=== PATIENT | female | born 1955 | race Caucasian/White ===

== ENCOUNTER 2019-04-05 06:27 | Inpatient (IN) | payer OTHER ==
[2019-04-05] MEDS ORDERED: Nitroglycerin TAB 0.4 MG* 0.4 MG TAB SL PRN ×2 (06:42→09:02)
[2019-04-05] MEDS ORDERED: Ticagrelor* 90 MG TAB PO ONE (06:42)
[2019-04-05] MEDS ORDERED: NS 0.9% 1000 ML** 1,000 ML IV ONE (06:42)
[2019-04-05] MEDS ORDERED: Heparin for STEMI(*) 5,000 UNITS/ML 1 ML VIAL IV ONE (06:42)
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
[2019-04-05] MEDS ORDERED: Aspirin 81 mg CHEW TAB* 81 MG TAB.CHEW PO ONE (06:49)
[2019-04-05 06:55] LABS: ABS Basophils 0.1 10^3/ul (0-0.2); ABS Eosinophils 0.2 10^3/ul (0-0.6); ABS Lymphocytes 1.7 10^3/ul (1.0-4.8); ABS Monocytes 0.4 10^3/ul (0-0.8); ABS Neutrophils 5.3 10^3/ul (1.5-7.7); Eosinophil % 2.1 %; Hematocrit 36 % (35-47); Hemoglobin 11.7 g/dL (12.0-16.0); Lymphocyte % 22.2 %; Mean Corpuscular HGB Conc 33 g/dL (31-36); Mean Corpuscular Hemoglobin 25 pg (27-31); Mean Corpuscular Volume 78 fL (80-97); Mean Platelet Volume 8.4 fL (7.4-10.4); Platelet Count 238 10^3/uL (150-450); Red Blood Count 4.62 10^6 /uL (3.70-4.87); Red Cell Distribution Width 18 % (10-15); White Blood Count 7.6 10^3/uL (3.5-10.8)
--- OUTSIDE RECORDS SUMMARY | 2019-04-05 07:00 | XMS REPORT | Continuity of Care Document ---
:1955 External Reference #:[id number] Author Name Juan Pablo Mendez M.D. Address [address] [place] [address] Care Team Providers Name Role Phone Juan Pablo Mendez MD - Family Medicine Care Team Information Baffle Installer [phone] Maria Elena Mcconnell PA-C - Care Team Information Baffle Installer [phone] Gastroenterology Problems Active Problems Provider Date Hypothyroidism Juan Pablo Mendez M.D. Onset: 08/20/2007 Gastroesophageal reflux disease Juan Pablo Mendez M.D. Onset: 08/20/2007 Depressive disorder Juan Pablo Mendez M.D. Onset: 08/20/2007 Type 2 diabetes mellitus Juan Pablo Mendez M.D. Onset: 08/26/2008 Obesity Juan Pablo Mendez M.D. Onset: 08/26/2008 Obstructive sleep apnea syndrome Juan Pablo Mendez M.D. Onset: 10/13/2011 Low back pain Kvng Borden M.D. Onset: 06/08/2012 Right lower quadrant pain Kvng Borden M.D. Onset: 06/08/2012 Essential hypertension Juan Pablo Mendez M.D. Onset: 04/01/2016 Granuloma annulare Juan Pablo Mendez M.D. Onset: 02/28/2019 Adult health examination Juan Pablo Mendez M.D. Onset: 08/20/2018 Constipation - functional Juan Pablo Mendez M.D. Onset: 01/22/2018 Social History Type Date Description Comments Sex Unknown Tobacco Use Start: Unknown Never Smoked Cigarettes ETOH Use Rare Tobacco Use Start: Unknown Patient has never smoked Smoking Status Reviewed: 10/20/18 Patient has never smoked Allergies, Adverse Reactions, Alerts Active Allergies Reaction Severity Comments Date Penicillin Vicodin nausea 06/30/2005 Levaquin INSOMNIA, INSOMNIA 08/26/2008 Medications Active Medications SIG Qnty Indications Ordering Date Provider Omeprazole 1 by mouth every 90caps Juan Pablo FDeb 12/22/2018 20mg day Lars Mendez Capsules DR VOGEL Ultra Fine Short dx diabetes 100units Juan Pablo FDeb 08/20/2018 Pen Mcloud mellitus e11.9 Lars Mendez Cpap replacement cpap G47.33 [place] 05/29/2018 mask, headgear, Rylie, [employer] tubing, filters, water chamber/chin strap disp#1, replace all as needed Metformin HCL take one tablet by 180tabs E11.9 Danna 02/10/2017 1000mg mouth twice a day Rylie, [employer] DES[employer] Tablets Hydrocortisone apply to face 30gm Phi Abad 01/04/2017 Valerate twice daily as Lasr Mcdonald 0.2% Cream needed Glipizide take 1 tablet by 270tabs E11.9 Juan Pablo FDeb 11/04/2016 5mg Tablets mouth 3 times Lars Mendez daily Mcloud For Opticlik daily injections 90units Juan Pablo FDeb 11/04/2016 LELA e11.9 Lars Mendez Ultra Fine III Lantus Solostar 30 units subq 45ml Juan Pablo FDeb 08/05/2016 every night 1 Lars Mendez 100Unit/ML Solution hours prior to bed Pen-Inject Losartan Potassium Take 1 Tablet By 90tabs Juan Pablo FDeb 06/03/2016 25mg Mouth Every Day Lars Mendez Tablets Tylenol With Codeine 1 tablet every 4 30tabs M25.572 Phi Abad 10/15/2015 #3 hours as needed Lars Mcdonald 300-30mg Tablets for pain Levothyroxine Sodium take 1 tablet by 90tabs E03.9 Marisel Stephen 02/14/2012 mouth daily PEÑA Abarca 50mcg Tablets Vesicare 1 tab every other 90tabs Juan Pablo FDeb 10mg Tablets day Lars Mendez History Medications Note needs new cpap Juan Pablo Mendez, 01/09/2019 - machine, 9cm M.D. 02/28/2019 pressure, Clotrimazole/Betameth apply to affected 60ml B37.9 Swapna Anushka 10/20/2018 - asone Dipropionate area twice a day PEÑA Olivares 02/28/2019 1-0.05% Lotion Diflucan 1 by mouth every 7tabs B37.9 Swapna Anushka 10/20/2018 - 200mg Tablets day PEÑA Olivares 02/28/2019 Immunizations CPT Code Status Date Vaccine Lot # [id number] Given 02/28/2019 Zoster (Shingles) Vaccine (HZV), Recombinant, [id number] Subunit, Adjuvanted 50586 Given 04/17/2018 Influenza Vac, Quadrivalent, Slit Virus, Im [id number] 31402 Given 05/18/2017 Influenza vac quadrivalent preservative free 3yrs [id number] and [place] 60298 Given 04/01/2016 Zostivax [id number] 59520 Given 04/01/2016 Influenza Vac, Quadrivalent, Slit Virus, Im [id number] 21656 Given 05/22/2014 Pneumococcal Conjugate Vacc-13 [id number] 62023 Given 06/04/2013 Preservative free flu 3 yrs+ and older [id number] 13853 Given 10/13/2011 Tdap Tetanus, W Pertussis [id number] 26889 Given 04/22/2010 Pneumococcal Immunization [id number] 70173 Given 01/27/2004 Td Immunization, For Use In Individuals 7 Years Or Older Vital Signs Date Vital Result Comment 02/28/2019 8:20am BP Systolic 124 mmHg BP Diastolic 76 mmHg Heart Rate 72 /min Body Temperature 98.1 F Respiratory Rate 16 /min Height 65 inches 5'5" Weight 245.00 lb BMI (Body Mass Index) 40.8 kg/m2 10/20/2018 9:58am BP Systolic 120 mmHg BP Diastolic 60 mmHg Heart Rate 88 /min Body Temperature 98.1 F Respiratory Rate 16 /min Height 65 inches 5'5" Weight 241.00 lb BMI (Body Mass Index) 40.1 kg/m2 Results Description No Information Available Procedures Date Code Description Status 02/28/2018 [id number] Mammogram Completed 06/19/2017 [id number] Colonoscopy Completed 05/03/2017 [id number] Colonoscopy Completed 02/27/2017 [id number] Mammogram Completed 03/03/2016 [id number] Bone Mineral Density Test Completed 02/26/2016 [id number] Mammogram Completed 11/05/2014 [id number] Mammogram Completed 11/04/2013 [id number] Mammogram Completed 02/17/2012 [id number] Mammogram Completed 02/14/2011 [id number] Mammogram Completed 01/18/2010 [id number] Mammogram Completed 01/16/2009 [id number] Mammogram Completed 01/16/2008 [id number] Mammogram Completed 12/22/2006 [id number] Mammogram Completed 11/03/2006 [id number] Colonoscopy Completed Medical Devices Description No Information Available Encounters Type Date Location Provider Dx Diagnosis Office Visit 10/20/2018 Main Office Swapna Reveles B37.9 Candidiasis, 10:00a PEÑA Olivares unspecified Assessments Date Code Description Provider 02/28/2019 E11.9 Type 2 diabetes mellitus without Juan Pablo Mendez M.D. complications 02/28/2019 E03.9 Hypothyroidism, unspecified Juan Pablo Mendez M.D. 02/28/2019 K21.9 Gastro-esophageal reflux disease without Juan Pablo Mendez M.D. 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 02/28/2019 Z23 Encounter for immunization Juan Pablo Mendez M.D. 10/20/2018 B37.9 Candidiasis, unspecified Swapna Olivares NP Plan of Treatment Future Appointment(s):03/01/2019 2:15 pm - Juan Pablo Mendez M.D. at Main [facility]/28/2019 - Juan Pablo Mendez M.D.E11.9 Type 2 diabetes mellitus without complicationsNew Labs:Comp Metabolic-ALL [facility], Ordered: 02/28/19Lipid Panel-[facility], Ordered: 02/28/19Hemoglobin A1c ([facility]), Ordered: C-Peptide, Serum, Ordered: 02/28/19CBC Electronic ([facility] New), Ordered: Comments:The patient was reminded to have regular Opthalmology exams , and check on blood pressure periodically.E03.9 Hypothyroidism, unspecifiedNew Labs: TSH ([facility]), Ordered: 02/28/19Free T4 ([facility]), Ordered: Follow up:Followup:. (Follow up)K21.9 Gastro-esophageal reflux disease without esophagitisComments:continue present ttxhavlosaP54.0 Granuloma annulareComments:uncontrolled, consider second [id number] Encounter for immunizationFollow up:Followup:. (Follow up)AllComments:Patient's name concern today is granuloma annulare, we discussed the possibility of a second opinionand she will consider this. Repeat lab work today for followup on diabetic control, we discussed thepossibility of changing to Trulicity or Ozempic and decreasing or stopping her dose of Lantus if it appears that her C- peptide is acceptable, or to consider consultation with Dr. Chua, will continue omeprazole for gastroesophageal reflux . Mammogram scheduled for tomorrow Functional Status Description No Information Available Mental Status Description No Information Available Referrals Refer to Dr Reason for Referral Status Appt Date Geovanna Hayes MD Worsening Rash jw Scheduled 11/02/2018 [facility] [address] [place] [address] [phone]
[2019-04-05 07:03] LABS: INR 0.86 (0.82-1.09)
[2019-04-05] MEDS ORDERED: Heparin(*) 1000 UNIT/ML 10 ML VIAL CATH LAB IV ONE (07:05)
[2019-04-05] MEDS ORDERED: VERAPAMIL 2.5 MG/ML 2 ML VIAL ** 5 mg/2 ml ONE (07:05)
[2019-04-05] MEDS ORDERED: Lidocaine 1% INJ* 10 MG/ML 30 ML SDV ONE (07:05)
[2019-04-05] MEDS ORDERED: Heparin 2 UNITS/ML IVPREMIX* 2,000 ML IV ONE (07:05)
[2019-04-05] MEDS ORDERED: nitroGLYCERIN DRIP* 25,000 MCG/250 ML BTL ONE ×2 (07:05→07:36)
[2019-04-05] MEDS ORDERED: Iohexol 350 (CONTRAST) 200 ML MDV IV ONE (07:06)
[2019-04-05 07:14] LABS: Albumin/Globulin Ratio 1.4 (1-3); BUN/Creatinine Ratio 13.3 (8-20); Calcium 9.4 mg/dL (8.6-10.3); EGFR African American 76.3 (>60); Globulin 2.8 g/dL (2-4); Potassium 4.3 mmol/L (3.5-5.0); Total Bilirubin 0.3 mg/dL (0.2-1.0); Total Protein 6.8 g/dL (6.4-8.9)
[2019-04-05 07:17] LABS: Troponin I 0.48 ng/mL (<0.04)
[2019-04-05] MEDS ORDERED: Iodixanol 320 (CONTRAST) 100 ML SDV ONE (07:35)
[2019-04-05] MEDS ORDERED: fentaNYL* 50 MCG/ML 2 ML VIAL (100 MCG VIAL) ONE (07:40)
[2019-04-05] MEDS ORDERED: Midazolam* 1 MG/ML 5 ML VIAL (5 MG) ONE (07:41)
[2019-04-05] MEDS ORDERED: Metoprolol Tartrate IV* 1 MG/ML 5 ML VIAL ONE (08:22)
[2019-04-05] MEDS ORDERED: Acetaminophen TAB* 325 MG PO PRN (09:02)
[2019-04-05] MEDS ORDERED: NS 0.9% 1000 ML** 1,000 ML IV SCH (09:15)
[2019-04-05 10:00] LABS: HDL Cholesterol 46.8 mg/dL
[2019-04-05 10:34] LABS: Troponin I 4.38 ng/mL (<0.04)
[2019-04-05] MEDS: CAPTopril TAB* 12.5 MG TAB PO SCH ×3 (10:41→20:54)
--- NOTE | 2019-04-05 11:19 | HP ---
AMENDED REPORT NOW INCLUDES DESIGNATED COSIGNER CC: Dr. Mendez * DATE OF ADMISSION: 04/05/2019. ATTENDING PHYSICIAN: Dr. José Miguel Centeno * (dictated by Wilda Alvarez NP). PRIMARY CARE PHYSICIAN: Dr. Mendez. CHIEF COMPLAINT: Chest pain. HISTORY OF PRESENT ILLNESS: This is a 63-year-old female patient with a notable history of obstructive sleep apnea, type 2 diabetes, hypertension, newly diagnosed hyperlipidemia, and morbid obesity who presented to [facility] on 04/05/2019 at 0600 due to complaints of ongoing chest pain. The patient states that she has been in her usual state of health. Apparently her most recent hemoglobin A1c at the end of January 2019 with 6.7 percent. She was referred to Dr. Larry Chua whom she is to see this coming May. She also adds that at that time her lipid panel was update and she was started on Pravastatin 10 mg a day, although she states she just recently started therapy within the past week. Apparently since last 03/30/2019, she has been noticing intermittent complaints of substernal burning chest pain. She states that the first episode occurred last Monday while watching her grandchildren and lasted less than 5 minutes. Apparently episodes started to reoccur on Monday and would occur with exertion and resolve with rest. She states that she "thought it was related to chest congestion, you know like how bronchitis feels." Apparently, yesterday she started to have increased frequency of episodes with increased intensity with radiation into the left arm. She states that symptoms also correlated with complaints of headache. Apparently, this occurred intermittently throughout the day yesterday. She adds that when she went to bed at 10:00 p.m. she was still having symptoms, although mild in intensity. When she woke up at midnight last night, symptoms were not present; however, at 3 o'clock this morning, apparently she was woken up from her sleep due to intense substernal chest pain described as burning in nature. Symptoms were constant and ongoing and more intense, thus she opted to present to [facility] for further evaluation. While being evaluated in the emergency department, ECG was obtained due to anterolateral ST segment changes. STEMI alert was called. She was given 325 mg of aspirin, in addition to 180 mg of Brilinta and IV Heparin therapy was initiated. She was seen urgently in consultation by Dr. José Miguel Centeno, project development leader. Decision was made to take her emergently to the matlab developer. She denies a history of stroke or bleeding complications. She is on Prilosec due to gastric reflux. LAST ISCHEMIC EVALUATION: None. PAST MEDICAL HISTORY: 1. Obstructive sleep apnea, reports compliant with CPAP therapy. 2. GERD. 3. Type 2 diabetes mellitus. 4. Hypothyroidism. 5. Depression. 6. Obesity. 7. Hypertension. 8. Newly diagnosed hyperlipidemia. PAST SURGICAL HISTORY: 1. Right shoulder decompression. 2. Colonoscopy. 3. Right ankle surgery. HOME MEDICATIONS: 1. Glipizide 5 mg p.o. b.i.d. 2. Vesicare 10 mg every other day. 3. Pravastatin 10 mg a day. 4. Prilosec 40 mg a day. 5. Metformin 1 gm p.o. b.i.d. 6. Losartan 25 mg a day. 7. Levothyroxine 0.05 a day. 8. Lantus 30 units at bedtime. ALLERGIES: 1. PENICILLIN, unknown reaction. 2. ADHESIVE TAPE WHICH CAUSES RASH. 3. LEVOTHYROXINE WHICH CAUSES INSOMNIA. FAMILY HISTORY: Her mother of complications from lung carcinoma. Otherwise noncontributory. SOCIAL HISTORY: The patient denies tobacco use, alcohol use, or drug use. She is retired. Apparently she is and single and lives home alone. In regards to activity, she tries to remain active, babysitting her four grandchildren. REVIEW OF SYSTEMS: All systems have been reviewed and are otherwise negative except for as above mentioned in the HPI. PHYSICAL EXAMINATION GENERAL: The patient is lying in bed with her daughter at bedside and appears in no apparent distress post cardiac catheterization. She is alert and oriented times three. CURRENT VITAL SIGNS: Temperature 98.7, pulse 83, respirations 20, oxygenation 98 percent on room air, blood pressure 120/72. HEENT: Head is atraumatic, normocephalic. Oral mucosa is moist. Tongue is midline. NECK: Supple, trachea midline. Unable to assess for JVD due to body habitus. No carotid bruit noted. CARDIAC: Normal S1, S2. Regular rate and rhythm. No murmur, rub, or gallop noted. LUNGS: Auscultated anteriorly. No evidence of adventitious breath sounds. Respirations are nonlabored. /GI: Abdomen is protuberant, nontender. Normoactive bowel sounds times four. EXTREMITIES: Right upper extremities radial access site was assessed. Strong radial pulse. No hematoma. Right upper extremity is in immobilizer. Bilateral dorsalis pedis pulse were assessed and are 3+. SKIN: Intact. Right radial access site is covered with Tegaderm dressing. No rashes, ecchymosis, or bleeding noted. LABORATORY DATA: Blood work obtained 04/05/2019 at [facility]: White count 7.6, hemoglobin 11.7, hematocrit 36, platelets 238; sodium 136, potassium 4.3, chloride 104, carbon dioxide 24, BUN 12, creatinine 0.9, glucose 286, troponin #1 is 0.48, BNP 110, LDL 89. ECG, 04/05/2019 at 0630: Sinus tachycardia, rate [address] segment elevation noted in V1 through V3 with reciprocal change noted in lead 2 and in V4 through V6. There are pathological Q-waves noted in V1 through V2. Chest x-ray obtained 04/05/2019, per radiology report: No active cardiopulmonary disease. ASSESSMENT AND PLAN: 1. Late presenting anterior MD: The patient has had persistent recurrent complaints of chest pain for the past seven days with increased intensity starting 04/04/2019. Early this morning, she had chest pain that awoke her from sleep at 0300 that was not related to activity and persistent and ongoing, thus she presented to [facility] for further evaluation. She was taken emergently to the matlab developer where she underwent successful drug-eluting stent placement to mid LAD. She will be admitted to the ICU. Isoenzymes are to be cycled. Will update echocardiogram. She is on aspirin 81 mg a day in combination with Brilinta 90 mg p.o. b.i.d. She will need uninterrupted dual antiplatelet therapy for a minimum of 12 months given presentation with STEMI. We will initiate low dose beta aftab therapy and continue statin therapy. LDL is 89, reflective of Pravastatin 10 mg a day; however, the patient states she just started this dose seven days ago. Will follow closely. 2. History of uncontrolled type 2 diabetes mellitus: Most recent hemoglobin A1c at the of January per patient was 6.7 percent. She was referred to Dr. Larry Chua whom she is to see in May. Given newly found coronary artery disease, she would benefit from SGLT-2 inhibitor such as Jardiance. This can be addressed on an outpatient basis. 3. History of hyperlipidemia: LDL 89, on Pravastatin therapy. Recommend a goal LDL less than 70 given history of diabetes and now newly diagnosed coronary artery disease. Will start high intensity statin therapy due to above # 1. 4. Microcytic anemia: In the past she had a colonoscopy with Dr. Ronnie Ozuna in 2017. Apparently she has not seen Gastroenterology since that time. She had three colorectal polyps removed. She denies bleeding complications in the past. 5. History of GERD: On Prilosec therapy. She said she had refractory symptoms on this therapy; thus, PCP in the past had attempted an alternative medication. Unfortunately, she is not able to recall the drug name. She may benefit from Dexilant therapy; however, this can be addressed with Gastroenterology or her primary physician in follow-up. 6. History of hypertension: Goal blood pressure less than 130/80 given history of diabetes. Will initial beta aftab therapy and monitor closely. 7. Disposition: Pending course. The patient is full code. Will cycle isoenzymes, chest echocardiogram and follow closely. Dr. José Miguel Centeno, who has previously seen and examined the patient, agrees with the above assessment and plan. WILDA ALVAREZ, PEÑA [id number]/[facility] #: [id number] CHACHA
[2019-04-05] MEDS ORDERED: Dextrose 50% VIAL 50 ml IV PUSH PRN (11:58)
[2019-04-05] MEDS: Insulin LISPRO* 1 UNITS UNIT SUBCUT SCH ×3 (12:23→20:53)
--- NOTE | 2019-04-05 13:43 | CATH ---
CC: Dr. Mendez; Dr. Mauro Centeno STENT REPORT: DATE OF PROCEDURE: 04/05/19 PRIMARY CARE PHYSICIAN: Dr. Mendez. PROCEDURES: 1. Right radial artery access with ultrasound guidance. 2. Bilateral selective coronary cineangiography. 3. Left heart catheterization. 4. Left ventriculography. 5. Stent placement LAD 2.5 x 12 Synergy drug-eluting stent. HISTORY: A 63-year-old diabetic presenting late with anteroseptal ST elevation infarct. PROCEDURE ACCESS: Right radial artery with ultrasound guidance. SHEATH: 6F Slender. MEDICATIONS: She received aspirin, heparin 4000 units and loading dose of Brilinta pre laboratory helper. laborer/grade check medications: 1. Nitroglycerin 300 mcg IA. 2. Verapamil 3 mg IA. 3. Heparin 5000 units IV. Continued IV nitroglycerin. DIAGNOSTIC CATHETER: 5F TIG4, 6F VL 3.5, 5F pigtail. GUIDING CATHETER: LAD 6F VL 3.5. WIRE: 14 BMW used to deploy a 2.5 X 12 Synergy drug-eluting stent in the mid LAD which was then post dilated with a 2.5 x 12 NC balloon to 16 atmospheres for 30 seconds. HEMODYNAMICS: Initial AO 136/80. Post revascularization LV 148/13-27, no aortic valve gradient on pullback. ANGIOGRAPHY: RCA: The RCA is large, dominant. The acute marginal branch supplies the PDA. It is followed by several smaller posterolateral branches with a terminal moderate posterolateral. The RCA has no significant stenosis. There are no visible right to left collaterals. Left main: The left main is normal in size and length, has no stenosis. LAD: The LAD has mild proximal calcification with an eccentric 30% stenosis, the LAD is moderate in size. The mid LAD supplies a moderate diagonal branch after which the LAD has an 80% stenosis which is fairly short, eccentric, the LAD continuation has JESUS-2 flow, LAD ends at the apex. Circumflex: The circumflex is moderate, not dominant, supplies the SA ryne artery and a moderate marginal branch, ends with a small posterolateral. The circumflex has no stenosis. Post LAD stent placement and high pressure postdilatation, the LAD has JESUS-3 flow, there is no residual stenosis. There is no compromise of the diagonal at the proximal end of the stent, a small JL diagonal has ostial 80% to 90% stenosis, is less than a millimeter in diameter. There was a normal myocardial blush. LV gram: There is ventricular ectopy, there is localized akinesis in the mid anterolateral wall, an apical hypokinesis, estimated LVEF 40% in the presence of ventricular ectopy. There is no MR. CONCLUSION: 1. Single vessel disease LAD, good angiographic result with drug-eluting stent placement. 2. LV systolic dysfunction as above with regional wall motion abnormality consistent with infarct-related artery. 3. Elevated left ventricular filling pressures with hypertension. 4. Successful right radial artery access. [id number]/[facility] #: [id number] MTDD
[2019-04-05 14:17] LABS: Corrected Retic Count 1.5 % (0.5-1.5); Hematocrit for Retic CNT 36 % (35-47); Immature Retic Fraction 0.41; RBC Retic Count 4.59 10^6/uL (3.70-4.87)
[2019-04-05 15:47] LABS: Troponin I 14.5 ng/mL (<0.04)
[2019-04-05 15:48] LABS: CKMB ng/mL 115.1 ng/mL (0.6-6.3)
[2019-04-05] MEDS: Atorvastatin* 80 MG TAB PO SCH (18:00)
[2019-04-05 19:50] LABS: Ferritin 5.5 ng/mL (11-307)
[2019-04-05] MEDS: Carvedilol TAB* 6.25 MG PO SCH (20:54)
[2019-04-05] MEDS: Ticagrelor* 90 MG TAB PO SCH (20:54)
[2019-04-05] MEDS: Insulin GLARGINE(*) 1 UNITS UNIT SUBCUT SCH (20:55)
[2019-04-05] MEDS ORDERED: glipiZIDE TAB* 5 MG PO SCH (21:00)
[2019-04-05 21:38] LABS: Creatine Kinase 620 U/L (10-223)
[2019-04-05 21:41] LABS: CKMB ng/mL 64.9 ng/mL (0.6-6.3)
[2019-04-05 21:42] LABS: Troponin I 12.58 ng/mL (<0.04)
[2019-04-06] MEDS: Insulin LISPRO* 1 UNITS UNIT SUBCUT SCH ×5 (00:16→18:29)
[2019-04-06 04:54] LABS: BUN/Creatinine Ratio 8.6 (8-20); Calcium 8.7 mg/dL (8.6-10.3); EGFR African American 73.4 (>60); EGFR Non-African American 60.7 (>60); Potassium 3.7 mmol/L (3.5-5.0)
[2019-04-06] MEDS: Levothyroxine TAB* 50 MCG TAB PO SCH (05:47)
[2019-04-06] MEDS: Ticagrelor* 90 MG TAB PO SCH ×2 (08:32→21:59)
[2019-04-06] MEDS: Spironolactone TAB* 25 MG PO SCH (08:32)
[2019-04-06] MEDS: Carvedilol TAB* 6.25 MG PO SCH ×2 (08:32→21:59)
[2019-04-06] MEDS: CAPTopril TAB* 12.5 MG TAB PO SCH ×3 (08:32→21:59)
[2019-04-06] MEDS: Pantoprazole TAB * 40 MG TAB PO SCH (08:32)
[2019-04-06] MEDS: Aspirin 81 mg CHEW TAB* 81 MG TAB.CHEW PO SCH (08:32)
[2019-04-06] MEDS: Ferrous Sulfate TAB* 325 MG PO SCH ×2 (13:28→21:59)
[2019-04-06] MEDS: Atorvastatin* 80 MG TAB PO SCH (18:31)
[2019-04-06] MEDS: Insulin GLARGINE(*) 1 UNITS UNIT SUBCUT SCH (22:08)
[2019-04-07] MEDS: Levothyroxine TAB* 50 MCG TAB PO SCH (05:32)
[2019-04-07 06:58] LABS: BUN/Creatinine Ratio 14.3 (8-20); Calcium 8.8 mg/dL (8.6-10.3); EGFR African American 82.6 (>60); EGFR Non-African American 68.3 (>60)
[2019-04-07] MEDS ORDERED: Solifenacin(NF) 10 MG TAB PO SCH (09:00)
[2019-04-07] MEDS: Insulin LISPRO* 1 UNITS UNIT SUBCUT SCH ×3 (09:37→18:00)
[2019-04-07] MEDS: Ticagrelor* 90 MG TAB PO SCH ×2 (09:38→21:00)
[2019-04-07] MEDS: Ferrous Sulfate TAB* 325 MG PO SCH ×3 (09:38→21:00)
[2019-04-07] MEDS: Pantoprazole TAB * 40 MG TAB PO SCH (09:38)
[2019-04-07] MEDS: Aspirin 81 mg CHEW TAB* 81 MG TAB.CHEW PO SCH (09:38)
[2019-04-07] MEDS: CAPTopril TAB* 12.5 MG TAB PO SCH ×3 (09:39→21:00)
[2019-04-07] MEDS: Spironolactone TAB* 25 MG PO SCH (09:39)
[2019-04-07] MEDS: Carvedilol TAB* 6.25 MG PO SCH ×2 (09:39→21:00)
--- NOTE | 2019-04-07 10:57 | ECHO ---
*[facility]* [place] [address] Fax #: [phone] Transthoracic Echocardiogram Patient: Khadijah Rios : 1955 Study Date: 04/07/2019 Age: 63 Gender: F HR: 91 bpm Height: 65 in /165.1 cm BSA: 2.16 m^2 Weight: 244.5 lb /111.1 kg BMI: 40.8 kg/m^2 *Utility Specialist: * Kymberly Mayen RD *Referring Physician: * Mauro Centeno MD *Reading Physician: * Cipriano Hawthorne MD Indications: Myocardial Infarction (new). S/P PCI. History: PMH: Myocardial infarction (current admission). Functional status: Following treatment plan for sleep apnea. Risk factors: Hypertension. Diabetes mellitus. Obese. Hyperlipidemia. Labs, prior tests, procedures, and surgery: Catheterization with coronary intervention. Performed during the current admission. The study demonstrated coronary artery disease. There was a stenosis in the mid left anterior descending coronary artery which was treated with a drug-eluting stent. Conclusions Summary: - Left ventricle: The cavity size is trivially reduced. Wall thickness is mildly increased. Systolic function is mildly to moderately reduced. The estimated ejection fraction is 40-45%. There is severe hypokinesis to akinesis of the [id number] apicoseptum, there is severe hypokinesis to akinesis of the mid anterior wall and there is mild hypokinesis of the distal infero-apex. Doppler parameters are consistent with abnormal left ventricular relaxation (grade 1 diastolic dysfunction). - Functionally benign heart valves. - There is no prior echocardiogram available to compare with at this time. Study data: Transthoracic echocardiogram. Procedure: Transthoracic echocardiography was performed. Image quality was fair. Complete 2D, spectral Doppler, and color flow Doppler. Location: Bedside. Patient status: Inpatient. Patient room number: 442-2. Rhythm: Normal sinus rhythm. Findings Left ventricle: The cavity size is trivially reduced. Wall thickness is mildly increased. Systolic function is mildly to moderately reduced. The estimated ejection fraction is 40-45%. Regional wall motion abnormalities: There is severe hypokinesis to akinesis of the [id number] apicoseptum, there is severe hypokinesis to akinesis of the mid anterior wall and there is mild hypokinesis of the distal infero-apex. Doppler parameters are consistent with abnormal left ventricular relaxation (grade 1 diastolic dysfunction). Right ventricle: The cavity size is normal. Systolic function is normal. Left atrium: The atrium is normal in size. Right atrium: The atrium is normal in size. Mitral valve: The leaflets are mildly thickened. There is trace regurgitation. Aortic valve: The valve is probably trileaflet. The leaflets are mildly thickened. There is no evidence of stenosis. There is no significant regurgitation. Tricuspid valve: The leaflets are normal thickness. There is no significant regurgitation. Pulmonic valve: The leaflets are normal thickness. There is no evidence of stenosis. There is no significant regurgitation. Aorta: Aortic root: The aortic root is appears normal. Ascending aorta: The ascending aorta is appears normal. Aortic arch: The aortic arch is appears normal. Pericardium: A prominent pericardial fat pad is present. There is no significant pericardial effusion. Pulmonary arteries: The main pulmonary artery is normal-sized. Systolic pressure can not be accurately estimated. Systemic veins: Inferior vena cava: The vessel is normal in size. There is (>= 50%) respiratory change in the IVC dimension. Measurements Left ventricle Value Ref Aortic valve Value Ref AB, LAX (L) 3.7 cm 3.8 - 5.2 Hayes diam, ED 1.6 cm ---- ESD, LAX 2.6 cm 2.2 - 3.5 Peak v, S 1.21 m/sec ---- FS, LAX 31 % 27 - 45 VTI, S 23.5 cm ---- PW, ED, LAX (H) 1.2 cm 0.6 - 0.9 Mean grad, S 3.0 mm Hg ---- FS 31 % 27 - 45 Peak grad, S 6.0 mm Hg ---- PW, ED (H) 1.2 cm 0.6 - 0.9 LVOT/AV, VTI ratio 0.94 ---- E', lat hayes, TDI (L) 8.3 cm/sec >=10.0 E/e', lat hayes, 9 Mitral valve Value Ref TDI Peak E 0.72 m/sec ---- E', med hayes, TDI 7.3 cm/sec >=7.0 Peak A 0.95 m/sec -- -- E/e', med hayes, 10 Decel time 130 ms ---- TDI Peak grad, D 2.1 mm Hg ---- E', avg, TDI 7.8 cm/sec Peak E/A ratio 0.8 ---- E/e', avg, TDI 9 <=14 Pulmonic valve Value Ref LVOT Value Ref Peak v, S 0.97 m/sec ---- Peak kane, S 0.95 m/sec Peak grad, S 4.0 mm Hg ---- VTI, S 22.0 cm Mean grad, S 2 mm Hg Aortic root Value Ref Root diam 2.6 cm <4.3 Ventricular septum Value Ref IVS, ED (H) 1.1 cm 0.6 - 0.9 Ascending aorta Value Ref AAo AP diam, S 2.9 cm ---- Right ventricle Value Ref AB, LAX 3.3 cm Aortic arch Value Ref Arch diam 1.9 cm ---- Left atrium Value Ref AP dim, ES 3.50 cm 2.70 - Decending aorta Value Ref 3.80 Willie peak kane 0.71 m/sec ---- ML dim, A4C 4.3 cm SI dim, A4C 4.5 cm Inferior vena cava Value Ref Vol/bsa, ES, 1-p 15 ml/m^2 11 - 40 Diam 1.3 cm ---- A4C Vol/bsa, ES, A/L 20 ml/m^2 16 - 34 Right atrium Value Ref SI dim, ES 4.1 cm 3.4 - 5.3 ML dim, ES, A4C 3.5 cm 2.6 - 4.4 SI dim, ES, A4C 4.1 cm 3.4 - 5.3 Estimated RAP 3 mm Hg Legend: (L) and (H) meche values outside specified reference range. Prepared and electronically signed by Cipriano Hawthorne MD 04/07/2019 10:56
[2019-04-07] MEDS: Atorvastatin* 80 MG TAB PO SCH (18:00)
[2019-04-07] MEDS: Insulin GLARGINE(*) 1 UNITS UNIT SUBCUT SCH (20:58)
[2019-04-08] MEDS: Levothyroxine TAB* 50 MCG TAB PO SCH (05:55)
[2019-04-08 06:12] VITALS: BP 122/56
[2019-04-08] MEDS: Insulin LISPRO* 1 UNITS UNIT SUBCUT SCH (08:14)
[2019-04-08] MEDS: Ticagrelor* 90 MG TAB PO SCH (08:15)
[2019-04-08] MEDS: Aspirin 81 mg CHEW TAB* 81 MG TAB.CHEW PO SCH (08:15)
[2019-04-08] MEDS: Carvedilol TAB* 6.25 MG PO SCH (08:16)
[2019-04-08] MEDS: Spironolactone TAB* 25 MG PO SCH (08:16)
[2019-04-08] MEDS: Pantoprazole TAB * 40 MG TAB PO SCH (08:18)
[2019-04-08] MEDS: Ferrous Sulfate TAB* 325 MG PO SCH (08:18)
[2019-04-08] MEDS ORDERED: CMC: Solifenacin(NF) 5 MG TAB PO SCH (09:00)
[2019-04-08] MEDS ORDERED: Lisinopril TAB* 5 MG PO SCH (09:00)
[2019-04-08] MEDS ORDERED: Metformin ER (NF) 500 MG TAB PO SCH (09:00)
[2019-04-08] MEDS ORDERED: metFORMIN* 1,000 MG TAB PO SCH (10:00)
--- NOTE | 2019-04-08 16:55 | DS ---
AMENDED REPORT NOW INCLUDES DESIGNATED COSIGNER CC: Dr. Mendez * DISCHARGE SUMMARY: DATE OF ADMISSION: 04/05/19 DATE OF DISCHARGE: Pending no complications, 04/08/19. ATTENDING PHYSICIAN: Dr. Irineo Reveles, Cardiology.* (DICTATED BY MIKE EDWARDS NP) PRIMARY CARE PHYSICIAN: Dr. Mendez. ADMITTING DIAGNOSES: 1. Late presenting anterolateral ST-segment elevation myocardial infarction. 2. History of type 2 diabetes. 3. History of hyperlipidemia. 4. History of hypertension. DISCHARGE DIAGNOSES: 1. Late presenting anterior ST-elevation myocardial infarction, status post drug- eluting stent to mid LAD. Troponin peaked at 14.5 on 04/05/19; LVEF 40% to 45%, on aspirin, Brilinta, high-intensity statin, carvedilol therapy. 2. Ischemic cardiomyopathy, LVEF 40% to 45%. The patient is compensated on physical examination, on carvedilol 18.75 mg p.o. b.i.d., lisinopril 5 mg a day , and Aldactone 25 mg a day. The patient is to follow up outpatient with Dr. Larry Chua to address initiation of Jardiance therapy. 3. Type 2 diabetes mellitus, on Lantus 30 units q.h.s. in combination with metformin 1 g p.o. b.i.d. Unfortunately, Soliqua 15 units was not available to prescribe upon discharge. Please note that the patient is to follow up with Dr. Larry Chua, Endocrinology, to discuss diabetes regimen. 4. History of hypertension, currently controlled on current medication regimen. 5. History of hyperlipidemia, now on Lipitor 80 mg p.o. q.h.s. Will need repeat fasting lipid panel and liver function tests in 6 to 8 weeks' time. PROCEDURES PERFORMED: The patient had a left heart catheterization on 04/05/[address] Mauro Centeno due to anterior ST-segment elevation myocardial infarction. A 5-Slovak sheath catheter was placed to the right radial artery with ultrasound guidance. 1. Left main: Normal in size and length. No stenosis. 2. LAD has mild proximal calcification with an eccentric 30% stenosis, the LAD is moderate in size. The mid LAD supplies a moderate diagonal branch after which the LAD has an 80% stenosis which is fairly short, eccentric, the LAD continuation has JESUS 2 flow, LAD ends at the apex. 3. Left circumflex: Moderate, nondominant, supplies the SA ryne artery and a moderate marginal branch, ends with a small posterolateral. Left circumflex has no stenosis. 4. Right coronary artery is large and dominant; the acute marginal branch supplies the PDA. It is followed by several smaller posterolateral branches with a terminal moderate posterolateral. The RCA has no significant stenosis. There are no visible dyiea-gc-iomh collaterals. LV gram: There is ventricular ectopy. There is localized akinesis in the mid anterolateral wall and apical hypokinesis, LVEF 40% in the presence of ventricular ectopy. There is no MR. The patient underwent successful drug-eluting stent placement with 2.5 x 12 mm Synergy drug-eluting stent to mid LAD. Complications: None. COURSE OF HOSPITAL STAY: This is a pleasant 63-year-old female patient with a notable history of hypertension, hyperlipidemia, type 2 diabetes mellitus, who presented to [facility] on 04/05/19 after several hours of ongoing chest pain. Retrospectively, the patient had admitted to several-day history of intermittent chest pain. While the patient was evaluated in the emergency department, she was given aspirin 325 mg in addition to Brilinta 180 mg and was started on IV heparin therapy. STEMI alert was called. The patient was seen urgently in consultation by Dr. Mauro Centeno, who proceeded to take the patient to the laboratory animal caretaker where she underwent successful drug-eluting stent placement to mid LAD. Postprocedure, the patient was transferred to the ICU. Her isoenzymes were cycled. Troponin peaked on 04/05/19 at 14.5. Echocardiogram was updated on 04/07/19, LVEF per report 40% to 45%, with severe hypokinesis to akinesis of the mid to distal apical septum. There was severe hypokinesis to akinesis of the mid anterior wall and there was mild hypokinesis of the distal apex, grade 1 diastolic dysfunction. The patient was continued on aspirin and Brilinta therapy. Glipizide was discontinued. Metformin was on hold due to cardiac catheterization. She was initiated on Coreg and lisinopril therapy in addition to Aldactone therapy to treat her ischemic cardiomyopathy. She remained compensated. She has been up and ambulating without difficulty. Current vital signs: Temperature 98.4, pulse 84, respirations 18, oxygenation 96% on room air, blood pressure 122/56. Pending no complications, she is to be discharged home later today. Social Work was consulted to determine cost of medications. I did personally speak to Dr. Larry Chua in regards to her diabetes management given the patient is supposed to see him in consultation in May. Recommendation was to stop glipizide, continue metformin therapy and if possible discharge her home on Soliqua 15 units a day; however, upon doing discharge [facility], this medication was not available, thus she was sent home on Lantus 30 units a day. She is stable and asymptomatic. Right radial access is intact. No hematoma, no thrill. Strong radial pulse palpated on physical examination today. Her LDL during this stay was 80. Hemoglobin A1c at the end of January per the patient was 6.7; however, repeat hemoglobin A1c after was 7.2%. FOLLOWUP APPOINTMENTS: 1. The patient is to see Dr. Mauro Centeno on 04/16/19 at 3 p.m. at the medical office building. 2. The patient is to see PCP, Dr. Juan Pablo Mendez, in 7 to 10 days. RESTRICTIONS: The patient was advised to not to do any strenuous activity until further directed in her followup with Dr. Mauro Centeno on 04/16/19. She is aware not to lift more than 5 to 10 pounds until further directed. Referral was placed for cardiac rehab, which will need to be followed up on outpatient. DISCHARGE DIET: Low-cholesterol, low-fat, diabetic diet. DISCHARGE MEDICATIONS: Include: 1. Aspirin 81 mg a day. 2. Brilinta 90 mg p.o. b.i.d. 3. Aldactone 25 mg a day. 4. VESIcare 10 mg p.o. every other day. 5. Pantoprazole 40 mg a day. 6. Metformin 1 g p.o. b.i.d. 7. Lisinopril 5 mg a day. 8. Levothyroxine 50 mcg p.o. daily. 9. Lantus 30 units subcu q.h.s. 10. Ferrous sulfate 325 mg p.o. t.i.d. 11. Carvedilol 18.75 mg p.o. b.i.d. 12. Lipitor 80 mg p.o. q.h.s. OUTPATIENT BLOOD WORK: The patient will need repeat fasting lipid panel and liver function tests in 6 to 8 weeks given initiation of high-intensity statin therapy. DISCHARGE CONDITION: The patient is stable and to be discharged home. Dr. Irineo Reveles has personally seen and examined the patient and agrees with the above assessment and plan. MIKE EDWARDS NP I have personally spoken with and examined the patient and I agree with the above. I reviewed dual antiplatelet therapy and it's importance with the patient. I personally showed her her stent card and the cardiac education book for her to read. I reviewed with her, her follow up wound check appt, next week with Dr. Centeno. IRINEO REVELES MD,FACC,[facility] [id number]/[facility] #: [id number] CHACHA
== END 2019-04-08 12:05 | disposition home or self-care (01) | DRG 246 ==
LOC: ED 06:27 → CHICATH 07:32 → ICU 09:02 → MEDTELE 04-06 17:23
PROVIDERS: ADMIT Internal Medicine Cardiovascular Disease; ATTEND Internal Medicine Cardiovascular Disease
PROC: B2111ZZ Fluoroscopy of Multiple Coronary Arteries using Low Osmolar Contrast (ICD-10-PCS; 2019-04-05)
PROC: B2151ZZ Fluoroscopy of Left Heart using Low Osmolar Contrast (ICD-10-PCS; 2019-04-05)
PROC: 4A023N7 Measurement of Cardiac Sampling and Pressure, Left Heart, Percutaneous Approach (ICD-10-PCS; 2019-04-05)
PROC: 027034Z Dilation of Coronary Artery, One Artery with Drug-eluting Intraluminal Device, Percutaneous Approach (ICD-10-PCS; principal; 2019-04-05 07:00)
DX: I21.09 ST elevation (STEMI) myocardial infarction involving other coronary artery of anterior wall (principal); I50.21 Acute systolic (congestive) heart failure; Z68.41 Body mass index [BMI] 40.0-44.9, adult; E11.9 Type 2 diabetes mellitus without complications; E78.5 Hyperlipidemia, unspecified; I25.5 Ischemic cardiomyopathy; D50.9 Iron deficiency anemia, unspecified; I11.0 Hypertensive heart disease with heart failure; G47.33 Obstructive sleep apnea (adult) (pediatric); E66.01 Morbid (severe) obesity due to excess calories; K21.9 Gastro-esophageal reflux disease without esophagitis; E03.9 Hypothyroidism, unspecified; F32.9 Major depressive disorder, single episode, unspecified; I25.10 Atherosclerotic heart disease of native coronary artery without angina pectoris; Z79.82 Long term (current) use of aspirin; Z79.02 Long term (current) use of antithrombotics/antiplatelets; Z79.4 Long term (current) use of insulin; Z79.899 Other long term (current) drug therapy; Z88.0 Allergy status to penicillin; Z88.1 Allergy status to other antibiotic agents; Z91.048 Other nonmedicinal substance allergy status; Z80.9 Family history of malignant neoplasm, unspecified; Z80.1 Family history of malignant neoplasm of trachea, bronchus and lung
CPT/HCPCS: 36415; 71045; 80048; 80053; 80061; 82550; 82553; 82728; 83036; 83605; 83721; 83880; 84484; 85025; 85045; 85347; 85610; 85730; 87641; 93005; 93306; 99156; 99157; 99285; A9270-GY; C1725; C1769; C1876; C1887; C9606-LD; J1644; J2250; J3010; J3490

== ENCOUNTER 2019-05-19 09:40 | Emergency (ER) | payer OTHER ==
--- OUTSIDE RECORDS SUMMARY | 2019-05-19 09:53 | XMS REPORT | Continuity of Care Document ---
:1955 External Reference #:[id number] Author Name Crystal Davis M.D. (transmitted by agent of provider Mervat Lewist) Address [address] [facility] [place] [address] Care Team Providers Name Role Phone Juan Pablo Mendez MD - Family Medicine Care Team Information Internal Control Specialist [phone] Problems Active Problems Provider Date Coronary arteriosclerosis in patient Crystal Davis M.D. Onset: 05/17/2019 with history of previous myocardial infarction Chronic ischemic heart disease Crystal Davis M.D. Onset: 05/17/[address] segment elevation myocardial Mauro Centeno MD, [facility], Onset: infarction involving left anterior FSCAI descending coronary artery Social History Type Date Description Comments Sex Unknown ETOH Use Denies alcohol use Tobacco Use Start: Unknown Patient has never smoked Second hand smoke Smoking Status Reviewed: 05/17/19 Patient has never smoked Second hand smoke Exercise Exercises regularly cardiac rehab 2x Type/Frequency weekly Allergies, Adverse Reactions, Alerts Active Allergies Reaction Severity Comments Date Penicillin Facial swelling 04/16/2019 Levaquin Insomnia insomnia 04/16/2019 Medications Active Medications SIG Qnty Indications Ordering Date Provider Carvedilol 3 by mouth two 60tabs Mauro Last 04/15/2019 6.25mg Tablets times a day MD Taryn, [facility], [facility] Lantus 30 units sq at Unknown 100Unit/ML bedtime Solution Atorvastatin Calcium 1 by mouth every Unknown 80mg day Tablets Ondansetron dissolve one Unknown 4mg Tablets tablet orally Dispers every 8 hours as needed for nausea.(pt not taking) Metformin HCL take one tablet Unknown 1000mg by mouth twice a Tablets day Brilinta 1 tab by mouth 180tabs Crystal Davis, 90mg Tablets twice a day M.D. Aspirin Ec Low Dose 1 by mouth every Unknown 81mg day Tablets Solifenacin Succinate 1 by mouth every Unknown other day 10mg Tablets Levothyroxine Sodium 1 by mouth every Unknown day 50mcg Tablets Omeprazole 1 by mouth every Unknown 20mg Capsules day Immunizationdanny Description No Information Available Vital Signs Date Vital Result Comment 05/17/2019 10:36am Height 65 inches 5'5" Weight 224.38 lb w/out shoes Heart Rate 80 /min L. radial, regular BP Systolic Sitting 90 mmHg LA, lg cuff BP Diastolic Sitting 58 mmHg LA, lg cuff BP Systolic Standing 84 mmHg LA, lg cuff BP Diastolic Standing 62 mmHg LA, lg cuff BMI (Body Mass Index) 37.3 kg/m2 Ejection Fraction 40-45% 04/07/19 04/16/2019 3:20pm Height 65 inches 5'5" Weight 234.25 lb no shoes Heart Rate 76 /min left radial regular BP Systolic Sitting 124 mmHg ule reg cuff BP Diastolic Sitting 78 mmHg ule reg cuff BP Systolic Standing 116 mmHg ule reg cuff BP Diastolic Standing 72 mmHg ule reg cuff BMI (Body Mass Index) 39.0 kg/m2 Ejection Fraction 40-45% 04/07/19 Echo Results Description No Information Available Procedures Date Code Description Status 04/16/2019 49067 EKG Tracing & Interpretation Completed 04/08/2019 67996 EKG, Interpretation Only Completed 04/07/2019 94994 ECHO Transthorasic Realtime 2D W Doppler & Color Flow Hosp Completed 04/07/2019 67232 EKG, Interpretation Only Completed 04/06/2019 59090 EKG, Interpretation Only Completed 04/05/2019 33590 Left Heart Cath. Incl S/I Coronaries, Angio S/I V Gram If Completed Done 04/05/2019 90472 EKG, Interpretation Only Completed 04/05/2019 08306 Revascularization Acute Total/Subtotal Occlusion Completed 11/16/2018 97103 Punch Biopsy Of Skin Completed Medical Devices Description No Information Available Encounters Type Date Location Provider Dx Diagnosis Office Visit 05/17/2019 [facility] Crystal Ryan, I25.10 Athscl heart 10:20a Of [employer] AT [facility] M.D. disease of [place] coronary artery w/o ang pctrs D50.9 Iron deficiency anemia, unspecified R11.2 Nausea with vomiting, unspecified I25.5 Ischemic cardiomyopathy I10 Essential (primary) hypertension Office Visit 04/16/2019 3:20p [facility] Mauro Last I21.02 Stemi involving Of [employer] AT [facility] MD Taryn, left anterior FACC, FSCAI descending coronary artery I50.21 Acute systolic (congestive) heart failure E11.9 Type 2 diabetes mellitus without complications D50.9 Iron deficiency anemia, unspecified Z98.61 Coronary angioplasty status Office Visit 04/08/2019 3:53p [facility] Wilda Alvarez I21.02 Stemi involving Of [employer] AT [facility] MOLD CHECKER left anterior descending coronary artery Z98.61 Coronary angioplasty status Office Visit 04/07/2019 12:25p [facility] Mauro Last I21.02 Stemi involving Of [employer] AT [facility] MD Taryn, left anterior FACC, FSCAI descending coronary artery I25.10 Athscl heart disease of [place] coronary artery w/o ang pctrs Z98.61 Coronary angioplasty status I50.9 Heart failure, unspecified E11.9 Type 2 diabetes mellitus without complications D50.9 Iron deficiency anemia, unspecified Office Visit 04/06/2019 12:24p [facility] Mauro Last I21.02 Stemi involving Of [employer] AT [facility] MD Taryn, left anterior FACC, FSCAI descending coronary artery I25.10 Athscl heart disease of [place] coronary artery w/o ang pctrs Z98.61 Coronary angioplasty status D50.9 Iron deficiency anemia, unspecified E11.9 Type 2 diabetes mellitus without complications Office Visit 04/05/2019 3:51p [facility] Wilda Alvarez I21.02 Stemi involving Of [facility] AT [facility] MOLD CHECKER left anterior descending coronary artery E11.9 Type 2 diabetes mellitus without complications E78.5 Hyperlipidemia, unspecified D50.9 Iron deficiency anemia, unspecified I10 Essential (primary) hypertension Office Visit 11/27/2018 11:40a [facility] Geovanna Hayes, L92.0 Granuloma MD swenson Z48.02 Encounter for removal of sutures Assessments Date Code Description Provider 05/17/2019 I25.10 Atherosclerotic heart disease of Crystal Davis M.D. [place] coronary artery without angina pectoris 05/17/2019 D50.9 Iron deficiency anemia, unspecified Crystal Davis M.D. 05/17/2019 R11.2 Nausea with vomiting, unspecified Crystal Davis M.D. 05/17/2019 I25.5 Ischemic cardiomyopathy Crystal Davis M.D. 05/17/2019 I10 Essential (primary) hypertension Crystal Davis M.D. 04/16/[address] elevation (Stemi) myocardial Mauro Centeno MD, FACC , infarction involving left anterior FSCAI descending coronary artery 04/16/2019 I50.21 Acute systolic (congestive) heart Mauro Centeno MD, FACC, failure FSCAI 04/16/2019 E11.9 Type 2 diabetes mellitus without Mauro Centeno MD, FACC , complications [facility] 04/16/2019 D50.9 Iron deficiency anemia, unspecified Mauro Centeno MD, FACC, [facility] 04/16/2019 Z98.61 Coronary angioplasty status Mauro Centeno MD, FACC, [facility] 04/08/[address] elevation (Stemi) myocardial Wilda Alvarez, PEÑ[place] infarction involving left anterior descending coronary artery 04/08/2019 Z98.61 Coronary angioplasty status Wilda Alvarez, MOLD CHECKER 04/07/[address] elevation (Stemi) myocardial Mauro Centeno MD, FACC , infarction involving left anterior FSCAI descending coronary artery 04/07/2019 I25.10 Atherosclerotic heart disease of Mauro Centeno MD, FACC, [place] coronary artery without angina FSCAI pectoris 04/07/2019 Z98.61 Coronary angioplasty status Mauro Centeno MD, FACC, [facility] 04/07/2019 I50.9 Heart failure, unspecified Mauro Centeno MD, FACC, [facility] 04/07/2019 E11.9 Type 2 diabetes mellitus without Mauro Centeno MD, FACC , complications FSCAI 04/07/2019 D50.9 Iron deficiency anemia, unspecified Mauro Centeno MD, FACC, [facility] 04/07/[address] elevation (Stemi) myocardial Cipriano Hawthorne M.D., FACC, infarction involving left anterior FASNC descending coronary artery 04/06/[address] elevation (Stemi) myocardial Mauro Centeno MD, RAE , infarction involving left anterior FSCAI descending coronary artery 04/06/2019 I25.10 Atherosclerotic heart disease of Mauro Centeno MD, FACC, [place] coronary artery without angina FSCAI pectoris 04/06/2019 Z98.61 Coronary angioplasty status Mauro Centeno MD, FACC, FSCAI 04/06/2019 D50.9 Iron deficiency anemia, unspecified Mauro Centeno MD, FACC, FSCAI 04/06/2019 E11.9 Type 2 diabetes mellitus without Mauro Centeno MD, FACC , complications [facility] 04/05/[address] elevation (Stemi) myocardial Wilda Thuman, MOLD CHECKER infarction involving left anterior descending coronary artery 04/05/2019 E11.9 Type 2 diabetes mellitus without Wilda Thuman, MOLD CHECKER complications 04/05/2019 E78.5 Hyperlipidemia, unspecified Wilda Thuman, MOLD CHECKER 04/05/2019 D50.9 Iron deficiency anemia, unspecified Wilda Thuman, MOLD CHECKER 04/05/[address] elevation (Stemi) myocardial Mauro Centeno MD, FACC , infarction involving left anterior FSCAI descending coronary artery 04/05/2019 I10 Essential (primary) hypertension Wilda Thuman, MOLD CHECKER 04/05/2019 I25.10 Atherosclerotic heart disease of Mauro Centeno MD, FACC, [place] coronary artery without angina FSCAI pectoris 11/27/2018 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 Geovanna Hayes MD 11/27/2018 Z48.02 Encounter for removal of sutures Geovanna Hayes MD 11/16/2018 R21 Rash and other nonspecific skin Geovanna Hayes MD eruption Plan of Treatment Future Appointment(s):05/28/2019 3:00 pm - [facility] ECHO Schedule at [facility]05/17/2019 - Crystal Davis M.D.I25.10 Atherosclerotic heart disease of [place] coronary artery without angina pectorisNew Orders: Echocardiogram, Ordered: 05/17/19EKG, Ordered: 05/17/19Follow up:OV 1 week with NPD50.9 Iron deficiency anemia, unspecifiedComments:Stopped iron replacement due to nausea.R11.2 Nausea with vomiting, unspecifiedNew Orders:Echocardiogram, Ordered: 05/17/19Comments:Possible contribution from low BP, but sugar, gastric emptying and more could be factors.Follow up:Call office after 2 for lab results [phone]:STOP Spironolactone STOP Lisinopril.I25.5 Ischemic cardiomyopathyNew Orders:Echocardiogram, Ordered: 05/17/19I10 Essential (primary) hypertensionComments:Too low today and at rehab. Functional Status Description No Information Available Mental Status Description No Information Available Referrals Description No Information Available
--- OUTSIDE RECORDS SUMMARY | 2019-05-19 09:53 | XMS REPORT | Continuity of Care Document ---
:1955 External Reference #:[id number] Author Name Rubén Taylor Description No Information Available Social History Type Date Description Comments Sex Unknown Allergies, Adverse Reactions, Alerts Description No Information Available Medications Description No Information Available Immunizations Description No Information Available Vital Signs Description No Information Available Results Description No Information Available Procedures Date Code Description Status 04/07/2019 11234 ECHO Transthorasic Realtime 2D W Doppler & Color Flow Hosp Completed 11/16/2018 30734 Punch Biopsy Of Skin Completed Medical Devices Description No Information Available Encounters Type Date Location Provider Dx Diagnosis Office Visit 11/27/2018 [facility] Geovanna Hayes MD 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 11:40a Z48.02 Encounter for removal of sutures Office Visit 11/02/2018 11:40a [facility] Griselda Andrews1 Rash and other MD nonspecific skin eruption Assessments Date Code Description Provider 11/27/2018 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
--- OUTSIDE RECORDS SUMMARY | 2019-05-19 09:53 | XMS REPORT | Continuity of Care Document ---
:1955 External Reference #:[id number] Author Name Crystal Davis M.D. (transmitted by agent of provider Mervat Lewist) Address [address] [place] [address] Care Team Providers Name Role Phone Juan Pablo Mendez MD - Family Medicine Care Team Information Drying Equipment Operator [phone] Problems Active Problems Provider Date Coronary arteriosclerosis in patient Crystal Davis M.D. Onset: 05/17/2019 with history of previous myocardial infarction Chronic ischemic heart disease Crystal Davis M.D. Onset: 05/17/[address] segment elevation myocardial Mauro Centeno MD, [facility], Onset: infarction involving left anterior FSCAI descending [...] 6.25mg Tablets times a day MD Taryn, [facility], [facility] Lantus 30 units sq at Unknown 100Unit/ML [...] by mouth every Unknown 20mg Capsules day [facility] [place] Description No Information Available Vital Signs Date [...] Available Procedures Date Code Description Status 04/16/2019 58534 EKG Tracing & Interpretation Completed 04/08/2019 30630 EKG, Interpretation Only Completed 04/07/2019 26137 ECHO Transthorasic Realtime 2D W Doppler & Color Flow Hosp Completed 04/07/2019 29465 EKG, Interpretation Only Completed 04/06/2019 39514 EKG, Interpretation Only Completed 04/05/2019 27352 Left Heart Cath. Incl S/I Coronaries, Angio S/I V Gram If Completed Done 04/05/2019 74208 EKG, Interpretation Only Completed 04/05/2019 75025 Revascularization Acute Total/Subtotal Occlusion Completed 11/16/2018 32180 Punch Biopsy Of Skin Completed Medical Devices Description No Information Available Encounters Type Date Location Provider Dx Diagnosis Office Visit 04/16/2019 [facility] Mauro Last I21.02 Stemi involving 3:20p [employer] [place] [facility] [place] Taryn, left anterior FACC, FSCAI descending coronary artery I50.21 Acute systolic (congestive) heart failure E11.9 Type 2 diabetes mellitus without complications D50.9 Iron deficiency anemia, unspecified Z98.61 Coronary angioplasty status Office Visit 04/08/2019 3:53p [facility] Wilda Alvarez, I21.02 Stemi involving Of [employer] AT [facility] [employer] left anterior descending coronary artery Z98.61 Coronary angioplasty status Office Visit 04/07/2019 12:25p [facility] Mauro Last I21.02 Stemi involving Of [employer] [facility] MD Taryn, left anterior FACC, FSCAI descending coronary artery I25.10 Athscl heart disease of [place] coronary artery w/o ang pctrs Z98.61 Coronary angioplasty status I50.9 Heart failure, unspecified E11.9 Type 2 diabetes mellitus without complications D50.9 Iron deficiency anemia, unspecified Office Visit 04/06/2019 12:24p [facility] Mauro Last I21.02 Stemi involving Of [employer] [facility] MD Taryn, left anterior FACC, FSCAI descending coronary artery I25.10 Athscl heart disease of [place] coronary artery w/o ang pctrs Z98.61 Coronary angioplasty status D50.9 Iron deficiency anemia, unspecified E11.9 Type 2 diabetes mellitus without complications Office Visit 04/05/2019 3:51p [facility] Wilda Alvarez, I21.02 Stemi involving Of [employer] AT [facility] [employer] [employer] left anterior descending coronary artery E11.9 Type 2 diabetes mellitus without complications E78.5 Hyperlipidemia, unspecified D50.9 Iron deficiency anemia, unspecified I10 Essential (primary) hypertension Office Visit 11/27/2018 11:40a [facility] Geovanna Hayes, L92.0 Granuloma MD swenson Z48.02 Encounter for removal of sutures Assessments Date Code Description Provider 05/17/2019 I25.10 Atherosclerotic heart disease of Crystal Davis M.D. [place] coronary artery without angina pectoris 05/17/2019 D50.9 [...] (congestive) heart Mauro Centeno MD, FACC, failure [facility] 04/16/2019 E11.9 Type 2 diabetes mellitus without Mauro Centeno MD, FACC , complications [facility] 04/16/2019 D50.9 Iron deficiency anemia, unspecified Mauro Centeno MD, FACC, [facility] 04/16/2019 Z98.61 Coronary angioplasty status Mauro Centeno MD, FACC, [facility] 04/08/[address] elevation (Stemi) myocardial Wilda Hendersontonya, HEALTH INFORMATION TECH infarction involving left anterior descending coronary artery 04/08/2019 Z98.61 Coronary angioplasty status Wilda Alvarez HE[employer] INFORMATION TECH 04/07/[address] elevation (Stemi) myocardial Mauro Centeno MD, FACC , infarction involving left anterior FSCAI descending coronary artery 04/07/2019 I25.10 Atherosclerotic heart disease of Mauro Centeno MD, FACC, [place] coronary artery without angina FSCAI pectoris 04/07/2019 Z98.61 Coronary angioplasty status Mauro Centeno MD, FACC, [facility] 04/07/2019 I50.9 Heart failure, unspecified Mauro Centeno MD, FACC, [facility] 04/07/2019 E11.9 Type 2 diabetes mellitus without Mauro Centeno MD, FACC , complications [facility] 04/07/2019 D50.9 Iron deficiency anemia, unspecified Mauro Centeno MD, FACC, [facility] 04/07/[address] elevation (Stemi) myocardial Cipriano Hawthorne M.D., RAE, infarction involving left anterior FASNC descending coronary artery 04/06/[address] elevation (Stemi) myocardial Mauro Centeno MD, FACC , infarction involving left anterior FSCAI descending coronary artery 04/06/2019 I25.10 Atherosclerotic heart disease of Mauro Centeno MD, FACC, [place] coronary artery without angina FSCAI pectoris 04/06/2019 Z98.61 Coronary angioplasty status Mauro Centeno MD, RAE, [facility] 04/06/2019 D50.9 Iron deficiency anemia, unspecified Mauro Centeno MD, RAE, [facility] 04/06/2019 E11.9 Type 2 diabetes mellitus without Mauro Centeno MD, RAE , complications FSCAI 04/05/[address] elevation (Stemi) myocardial Wilda Alvarez HE[employer] INFORMATION TECH infarction involving left anterior descending coronary artery 04/05/2019 E11.9 Type 2 diabetes mellitus without Wilda Alvarez HE[employer] INFORMATION TECH complications 04/05/2019 E78.5 Hyperlipidemia, unspecified Wilda Thtonya, HEALTH INFORMATION TECH 04/05/2019 D50.9 Iron deficiency anemia, unspecified Wilda Alvarez, HEALTH INFORMATION TECH 04/05/[address] elevation (Stemi) myocardial Mauro Centeno MD, RAE , infarction involving left anterior FSCAI descending coronary artery 04/05/2019 I10 Essential (primary) hypertension Wilda Alvarez HEALTH INFORMATION TECH 04/05/2019 I25.10 Atherosclerotic heart disease of [facility], [facility] [place] coronary artery without angina [facility] pectoris 11/27/2018 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 Geovanna Hayes MD 11/27/2018 Z48.02 Encounter for removal of sutures Geovanna Hayes MD 11/16/2018 R21 Rash and other nonspecific skin Geovanna Hayes MD eruption Plan of Treatment Future Appointment(s):05/24/2019 12:00 pm - Wilda Alvarez NP at [facility]05/28/2019 3:00 pm - [facility] ECHO Schedule at [facility]05/17/2019 - Crystal Davis M.D.I25.10 Atherosclerotic heart disease of [place] coronary artery without angina pectorisNew Orders:Echocardiogram, Ordered : 05/17/19EKG, Ordered: 05/17/19Follow up:OV 1 week with NPD50.9 Iron deficiency anemia, unspecifiedComments:Stopped iron replacement due to nausea.R11.2 Nausea with vomiting, unspecifiedNew Orders:Echocardiogram, Ordered : 05/17/19Comments:Possible contribution from low BP, but sugar, gastric emptying and more could be factors.Follow up:Call office after 2 for lab results [phone]:STOP Spironolactone STOP Lisinopril.I25.5 Ischemic cardiomyopathyNew Orders:Echocardiogram, Ordered: 05/17/19I10 Essential (primary) hypertensionComments:Too low today and at rehab. Functional Status Description No Information Available Mental Status Description No Information Available Referrals Description No Information Available
--- OUTSIDE RECORDS SUMMARY | 2019-05-19 09:53 | XMS REPORT | Continuity of Care Document ---
:1955 External Reference #:[id number] Author Name Juan Pablo Mendez M.D. Address [address] [place] [address] Care Team Providers Name Role Phone Juan Pablo Mendez MD - Family Medicine Care Team Information Clamp Carrier Operator [phone] Maria Elena Mcconnell PA-C - Care Team Information Clamp Carrier Operator [phone] Gastroenterology Problems Active Problems Provider Date Hypothyroidism [...] hypertension Juan Pablo Mendez M.D. Onset: 04/01/2016 Coronary arteriosclerosis Juan Pablo Mendez M.D. Onset: 04/22/2019 Mixed hyperlipidemia Juan Pablo Mendez M.D. Onset: 03/20/2019 Granuloma annulare Juan Pablo Mendez M.D. Onset: [...] Medications SIG Qnty Indications Ordering Date Provider Ferrous Sulfate 1 po tid 180tabs Juan Pablo F. 04/22/2019 Lars Mendez 325(65Fe) mg Tablets Nitroglycerin dissolve one 25tabs Juan Pablo F. 04/22/2019 0.4mg tablet under the Lars Mendez Tablets Sub tongue as needed, repeat every 5 minutes up to three tablets, call 911 after 3 tablets Carvedilol 3 by mouth twice a 30tabs Ezekiel Ornelas, 04/14/2019 6.25mg day M.DDeb Tablets Ondansetron dissolve 1 tab 20tabs Juan Pablo FDeb 04/11/2019 4mg under tongue four Lars Mendez Tablets Dispers times a day hours as needed nausea Cpap replacement cpap G47.33 [place] 05/29/2018 mask, headgear, Rylie, PHYSICIAN'S AIDE tubing, filters, water chamber/chin strap disp#1, replace all as needed Metformin HCL take one tablet by 180tabs E11.9 Danna 02/10/2017 1000mg mouth twice a day Rylie, PHYSICIAN'S AIDE Tablets Lantus Solostar 30 units subq 45ml Juan Pablo F. 08/05/2016 every night 1 Lars Mendez 100Unit/ML Solution hours prior to bed Pen-Inject Levothyroxine Sodium take 1 tablet by 90tabs E03.9 Marisel C. 02/14/2012 mouth daily PEÑA Abarca 50mcg Tablets Lipitor 1 by mouth every Unknown 80mg Tablets day Lisinopril 1 by mouth every Unknown 5mg day Tablets Pantoprazole Sodium 1 by mouth every Unknown day 40mg Tablets Aldactone use 1pill a day Unknown 25mg for fluid Tablets Brilinta 1 by mouth twice a Unknown 90mg Tablets day Aspir-Low 1 by mouth every Unknown 81mg day Tablets DR Truong 1 tab every other 90tabs Juan Pablo Christy 10mg Tablets day Lars Mendez History Medications Pravastatin Sodium 1 by mouth 90tabs Juan Pablo TgDeb Mendez, 03/20/2019 - 10mg every day M.D. 04/22/2019 Tablets Note needs new cpap Juan Pablo TgDeb Mendez, 01/09/2019 - machine, 9cm M.D. 02/28/2019 pressure, Omeprazole 1 by mouth 90caps Juan Pablo TgDeb Mendez, 12/22/2018 - 20mg Capsules every day M.D. 04/22/2019 Immunizations CPT Code Status Date Vaccine Lot # [id number] Given 02/28/2019 Zoster (Shingles) Vaccine (HZV), Recombinant, [id number] Subunit, Adjuvanted 40566 Given 04/17/2018 Influenza Vac, Quadrivalent, Slit Virus, Im [id number] 97819 Given 05/18/2017 Influenza vac quadrivalent preservative free 6 [id number] months and up 94221 Given 04/01/2016 Zostivax [id number] 94478 Given 04/01/2016 Influenza Vac, Quadrivalent, Slit Virus, Im [id number] 10506 Given 05/22/2014 Pneumococcal Conjugate Vacc-13 [id number] 48246 Given 06/04/2013 Preservative free flu 3 yrs+ and older [id number] 95899 Given 10/13/2011 Tdap Tetanus, W Pertussis [id number] 22712 Given 04/22/2010 Pneumococcal Immunization [id number] 32174 Given 01/27/2004 Td Immunization, For Use In Individuals 7 Years Or Older Vital Signs Date Vital Result Comment 04/22/2019 4:24pm BP Systolic 110 mmHg BP Diastolic 60 mmHg Heart Rate 80 /min Body Temperature 97.3 F Respiratory Rate 12 /min Height 65 inches 5'5" measured Weight 233.00 lb BMI (Body Mass Index) 38.8 kg/m2 02/28/2019 8:20am BP Systolic 124 mmHg BP Diastolic 76 mmHg Heart Rate 72 /min Body Temperature 98.1 F Respiratory Rate 16 /min Height 65 inches 5'5" Weight 245.00 lb BMI (Body Mass Index) 40.8 kg/m2 Results Test Date Facility Test Result H/L Range Note Laboratory test 04/22/2019 [facility] Hemoglobin A1c 6.6% % High 4.1 -5.7 finding (607)- - (Fma) Hematocrit (Fma/CMC/CTX) 36.1 % 35.0-50.0 Laboratory test finding 04/05/2019 [facility] Hemoglobin A1c (Glyco 7.2 % High 4.0-5.6 1 HGB) Ferritin 5.5 ng/mL Low 11-307 Retic Count 04/05/2019 [facility] Retic Count 1.9 % High 0.5-1.5 Corrected Retic Count 1.5 % Normal 0.5-1.5 Maturation Factor Retic 1.5 Retic Index 1.00 Mean Retic Volume 109.5 Immature Retic Fraction 0.41 RBC Retic Count 4.59 10^6/uL Normal 3.70-4.87 Hematocrit for Retic CNT 36 % Normal 35-47 Lipid Profile (Trig/Chol/HDL) 04/05/2019 [facility] Triglycerides 104 mg/dL 2 Cholesterol 148 mg/dL 3 HDL Cholesterol 46.8 mg/dL 4 LDL Cholesterol 80 mg/dL 5 Laboratory test finding 04/05/2019 [facility] LDL Cholesterol Direct 89 mg/dL 6 Troponin I 0.48 ng/mL Critical high <0.04 7 Comp Metabolic Panel 04/05/2019 [facility] Sodium 136 mmol/L Normal 135-145 Potassium 4.3 mmol/L Normal 3.5-5.0 Chloride 104 mmol/L Normal 101-111 Co2 Carbon Dioxide 24 mmol/L Normal 22-32 Anion Gap 8 mmol/L Normal 2-11 Glucose 286 mg/dL High 70-100 Blood Urea Nitrogen 12 mg/dL Normal 6-24 Creatinine 0.90 mg/dL Normal 0.51-0.95 BUN/Creatinine Ratio 13.3 Normal 8-20 Calcium 9.4 mg/dL Normal 8.6-10.3 Total Protein 6.8 g/dL Normal 6.4-8.9 Albumin 4.0 g/dL Normal 3.2-5.2 Globulin 2.8 g/dL Normal 2-4 Albumin/Globulin Ratio 1.4 Normal 1-3 Total Bilirubin 0.30 mg/dL Normal 0.2-1.0 Alkaline Phosphatase 95 U/L Normal 34-104 Alt 15 U/L Normal 7-52 Ast 25 U/L Normal 13-39 Egfr Non- 63.0 >60 Egfr 76.3 >60 8 Laboratory test 04/05/2019 [facility] Partial Thrombo 26.0 seconds Normal 26.0- 38.0 finding Time PTT Inr/Protime 04/05/2019 [facility] Inr 0.86 Normal 0.82-1.09 9 CBC Auto Diff 04/05/2019 [facility] White Blood Count 7.6 10^3/uL Normal 3.5- 10.8 Red Blood Count 4.62 10^6/uL Normal 3.70-4.87 Hemoglobin 11.7 g/dL Low 12.0-16.0 Hematocrit 36 % Normal 35-47 Mean Corpuscular Volume 78 fL Low 80-97 Mean Corpuscular Hemoglobin 25 pg Low 27-31 Mean Corpuscular HGB Conc 33 g/dL Normal 31-36 Red Cell Distribution Width 18 % High 10-15 Platelet Count 238 10^3/uL Normal 150-450 Mean Platelet Volume 8.4 fL Normal 7.4-10.4 Abs Neutrophils 5.3 10^3/uL Normal 1.5-7.7 Abs Lymphocytes 1.7 10^3/uL Normal 1.0-4.8 Abs Monocytes 0.4 10^3/uL Normal 0-0.8 Abs Eosinophils 0.2 10^3/uL Normal 0-0.6 Abs Basophils 0.1 10^3/uL Normal 0-0.2 Abs Nucleated RBC 0.0 10^3/uL Granulocyte % 69.1 % Lymphocyte % 22.2 % Monocyte % 5.8 % Eosinophil % 2.1 % Basophil % 0.8 % Nucleated Red Blood Cells % 0.0 Laboratory test 04/05/2019 [facility] Lactic Acid 2.1 mmol/L Critical high 0.5- 2.0 10 finding B-Type Natriuretic Peptide BNP 110 pg/mL High <=100 Comprehensive Metabolic 03/01/2019 [facility](fma) Sodium 140 mEq/L 134-149 Prof Potassium 4.7 mEq/L 3.6-5.5 Chloride 103 mEq/L 94-112 Carbon Dioxide 28 mEq/L 21-32 Glucose 114 mg/dL High 70-105 11 BUN 11 mg/dL 6-26 Creatinine 0.9 mg/dL 0.6-1.4 BUN/Creat Ratio 12.2 CALC 8.0-36.0 Calcium 9.2 mg/dL 8.6-10.2 Total Protein 7.0 g/dL 6.4-8.3 Albumin 4.1 g/dL 3.8-5.5 Globulin 2.9 g/dL 2.0-4.8 A/G Ratio 1.4 CALC 0.6-2.3 Alk. Phosphatase 84 U/L 30-110 Alt (SGPT) 15 U/L 7-35 Ast (Sgot) 12 U/L 5-34 Total Bilirubin 0.6 mg/dL 0.2-1.3 GFR Non- >60 ml/min/1.73m^ >=60 GFR >60 ml/min/1.73m^ >=60 Lipid Profile 03/01/2019 [facility](a) Cholesterol 208 mg/dL High 120-200 Triglycerides 100 mg/dL 30-200 HDL Cholesterol 58 mg/dL 30-85 LDL (Calculated) 130 CALC High 0-129 VLDL Cholesterol 20 mg/dL 0-50 HDL Risk Factor 3.6 CALC 0.0-4.4 Laboratory test finding 03/01/2019 Robby Karen([facility]) TSH 0.85 mIU/L 0.50-6.00 Free T4 1.43 ng/dL 0.75-1.54 CBC Electronic Fma 03/01/2019 [facility](a) WBC 6.4 x10^3/UL 4.0- 10.0 RBC 4.70 x10^6/UL 3.93-6.00 HGB 12.0 g/dL 12.0-17.0 HCT 37 % 35-50 MCV 79.6 fL Low 80.0-95.0 12 MCH 25.1 pg Low 25.6-32.2 13 MCHC 31.3 g/dL Low 32.2-36.0 14 RDW-CV 15.6 % High 11.6-14.4 PLT 315 x10^3/UL 163-400 MPV 10.4 fL 9.4-12.4 Jose Juan# 4.45 x10^3/UL 1.56-6.13 Lymph# 1.41 x10^3/UL 1.18-3.74 [place]# 0.41 x10^3/UL 0.24-0.82 Eos # 0.1 x10^3/UL 0.0-0.5 Baso # 0.04 x10^3/UL 0.01-0.08 Jose Juan% 69.5 % 34.0-70.0 Lymph % 22.0 % 20.0-52.0 [place]% 6.4 % 5.0-12.0 Eos% 1.3 % 0.7-7.0 Baso% 0.6 % 0.1-1.2 Laboratory test 03/01/2019 [facility] Hemoglobin A1c 6.7 % High 4.1- 5.7 finding (607)- - (Fma) Laboratory test 03/01/2019 [facility] C-Peptide 1.4 ng/mL 1.1 - 4.4 15 finding 1 Therapeutic target for the treatment of diabetes mellitus patients is <7% HBA1C, and in selective patients <6.0%. Please refer to [place] Diabetes Association diabetic care guidelines for further information. 2 Desirable: <150 Borderline High: 150-199 High: 200-499 Very High: >500 3 Desirable: <200 Borderline High: 200-239 High: >239 4 Low: <40 Desirable: 40-60 High: >60 5 Desirable: <100 Near Optimal: 100-129 Borderline High: 130-159 High: 160-189 Very High: >189 6 Desirable: <100 Near Optimal: 100-129 Borderline High: 130-159 High: 160-189 Very High: >189 7 Result TnIDx:0.48 Called to [id number] at: 07:14:51 by:[email or web address] Read back by: [id number] Troponin-I testing on Plasma Separator Tubes (PST) has a known false positive rate of 0.20-0.40%. All positive troponins reflex immediately to secondary confirmatory testing. Using the [employer] DxI 800 Access Immunoassay systems, the 99th percentile upper reference limit was demonstrated to be < 0.03 ng/mL. 8 Because ethnic data is not always readily available, this report includes an eGFR for both -Americans and non- Americans. The National Kidney Disease Education Program (NKDEP) does not endorse the use of the MDRD equation for patients that are not between the ages of 18 and 70, are , have extremes of body size, muscle mass, or nutritional status, or are non- or non-. According to the National Kidney Foundation, irrespective of diagnosis, the stage of the disease is based on the level of kidney function: Stage Description GFR(mL/min/1.73 m(2)) 1 Kidney damage with normal or decreased GFR 90 2 Kidney damage with mild decrease in GFR 60-89 3 Moderate decrease in GFR 30-59 4 Severe decrease in GFR 15-29 5 Kidney failure <15 (or dialysis) 9 Standard intensity warfarin therapeutic range: 2.0-3.0 High intensity warfarin therapeutic range: 2.5-3.5 10 Critical Result LACT:2.1 Called to [id number] at: 07:26:09 by:[email or web address] Read back by:[facility] Severe Sepsis and Septic Shock Management Bundle Measure requires all lactic acids initially measuring >2.0 mmol/L be repeated. 11 consistent w/ previous results 12 RESULTS VERIFIED BY REPEAT ANALYSIS 13 RESULTS VERIFIED BY REPEAT ANALYSIS 14 consistent w/ previous results 15 Test Performed by: [address] [address] Glass Science Engineer: David Cuadra M.D. Ph.D.; CLIA# [id number] Procedures Date Code Description Status 03/01/2019 [id number] Mammogram Completed 02/28/2018 [id number] Mammogram Completed 06/19/2017 [id number] Colonoscopy Completed 05/03/2017 [id number] Colonoscopy Completed 02/27/2017 [id number] Mammogram Completed 03/03/2016 [id number] Bone Mineral Density Test Completed 02/26/2016 [id number] Mammogram Completed 11/05/2014 [id number] Mammogram Completed 11/04/2013 [id number] Mammogram Completed 02/17/2012 [id number] Mammogram Completed 02/14/2011 [id number] Mammogram Completed 01/18/2010 [id number] Mammogram Completed 01/16/2009 [id number] Mammogram Completed 01/16/2008 [id number] Mammogram Completed 12/22/2006 [id number] Mammogram Completed 11/03/2006 [id number] Colonoscopy Completed Medical Devices Description No Information Available Encounters Type Date Location Provider Dx Diagnosis Office Visit 02/28/2019 Main Office Juan Pablo Mendez, E11.9 Type 2 diabetes 8:20a M.D. mellitus without complications E03.9 Hypothyroidism, unspecified K21.9 Gastro-esophageal reflux disease without esophagitis 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 Z23 Encounter for immunization Assessments Date Code Description Provider 04/22/2019 E11.9 Type 2 diabetes mellitus without Juan Pablo Mendez M.D. complications 04/22/2019 E78.49 Other hyperlipidemia Juan Pablo Mendez M.D. 04/22/2019 I25.10 Atherosclerotic heart disease of [place] Juan Pablo Mendez M.D. coronary artery without angina pectoris 04/22/2019 D50.8 Other iron deficiency anemias Juan Pablo Mendez M.D. 03/20/2019 E78.49 Other hyperlipidemia Juan Pablo Mendez M.D. 03/20/2019 E11.9 Type 2 diabetes mellitus without Juan Pablo Mendez M.D. complications 03/01/2019 E11.9 Type 2 diabetes mellitus without Juan Pablo Mendez M.D. complications 03/01/2019 E03.9 Hypothyroidism, unspecified Juan Pablo Mendez M.D. 02/28/2019 E11.9 Type 2 diabetes mellitus without Juan Pablo Mendez M.D. complications 02/28/2019 E03.9 Hypothyroidism, unspecified Juan Pablo Mendez M.D. 02/28/2019 K21.9 Gastro-esophageal reflux disease without Juan Pablo Mendez M.D. 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 02/28/2019 Z23 Encounter for immunization Juan Pablo Mendez M.D. Plan of Treatment Future Appointment(s):06/24/2019 3:20 pm - Juan Pablo Mendez M.D. at [facility] [id number]/22/2019 - Juan Pablo Mendez M.D.E11.9 Type 2 diabetes mellitus without complicationsComments:Continue present medications of Lantus and metformin, patient has an appointment with Dr. Chua in the near ybolwqF42.49 Other hyperlipidemiaComments:Currently well-controlled on Lipitor 80 mg ocnumF15.10 Atherosclerotic heart disease of [place] coronary artery without angina pectorisComments:continue present medication,will call if there is any increase in the frequency or severity of angina , continue cardiac rehabilitation, patient has an appointment with Dr. Davis in the near futurePrescription for nitroglycerin was given to use in case of chest rgrbtdcwaaS54.8 Other iron deficiency anemiasComments:Refer to Dr. Ozuna, at some point patient may need a gastroscopy to evaluate her mild anemia and gastroesophageal reflux however she currently is doing well on pantoprazole and this may not need to be done on an urgent basis given her recent myocardial infarctionAllNew Medication: Ferrous Sulfate 325(65 Fe) mg - 1 po tidNitroglycerin 0.4 mg - dissolve one tablet under the tongue as needed, repeat every 5 minutes up to three tablets, call 911 after 3 tabletsFollow up:2 months Functional Status Description No Information Available Mental Status Description No Information Available Referrals Refer to Reason for Referral Status Appt Date Larry Chua MD DM jw Scheduled 05/29/2019 [facility] Endocrinology [address] [facility] [id number] [phone] Geovanna Hayes MD Worsening Rash jw Scheduled 11/02/2018 [facility] Dermatology [address] [place], [place] [address] [phone]
--- OUTSIDE RECORDS SUMMARY | 2019-05-19 09:53 | XMS REPORT | Continuity of Care Document ---
:1955 External Reference #:[id number] Author Name Mauro Centeno MD, FACC, [facility] (transmitted by agent of provider Darshana Lange) Address [address] [place] [address] Care Team Providers Name Role Phone Juan Pablo Mendez MD - Family Medicine Care Team Information Data Analyst Etl Developer [phone] Problems Active Problems Provider Date Acute ST segment elevation Mauro Centeno MD, FACC, Onset: 04/16/2019 myocardial infarction involving [facility] left anterior descending coronary artery Social History Type Date Description Comments Sex Unknown ETOH Use Denies alcohol use Tobacco Use Start: Unknown Patient has never smoked Second hand smoke Smoking Status Reviewed: 04/16/19 Patient has never smoked Second hand smoke Exercise Does not exercise Type/Frequency Allergies, Adverse Reactions, Alerts Active Allergies Reaction Severity Comments Date Penicillin Facial swelling 04/16/2019 Levaquin Insomnia insomnia 04/16/2019 Medications Active Medications SIG Qnty Indications Ordering Date Provider Carvedilol 3 by mouth six 60tabs Mauro Last 04/15/2019 6.25mg Tablets times a day MD Taryn, FACC, [facility] Lantus 30 units sq at Unknown 100Unit/ML Solution bedtime Atorvastatin Calcium 1 by mouth every Unknown 80mg day Tablets Ondansetron dissolve one Unknown 4mg Tablets tablet orally Dispers every 8 hours as needed for nausea.(pt not taking) Metformin HCL take one tablet Unknown 1000mg by mouth twice a Tablets day Spironolactone 1 by mouth every Unknown 25mg Tablets day Brilinta 1 tab by mouth Unknown 90mg Tablets twice a day Aspirin Ec Low Dose 1 by mouth every Unknown 81mg day Tablets Lisinopril 1 by mouth every Unknown 5mg Tablets day Solifenacin Succinate 1 by mouth every Unknown 10mg day Tablets Levothyroxine Sodium 1 by mouth every Unknown 50mcg day Tablets Omeprazole 1 by mouth every Unknown 20mg Capsules DR day Immunizations Description No Information Available Vital Signs Date Vital Result Comment 04/16/2019 3:20pm Height 65 inches 5'5" Weight [...] Available Procedures Date Code Description Status 04/16/2019 20907 EKG Tracing & Interpretation Completed 04/07/2019 67917 ECHO Transthorasic Realtime 2D W Doppler & Color Flow Hosp Completed 04/05/2019 77702 Left Heart Cath. Incl S/I Coronaries, Angio S/I V Gram If Completed Done 04/05/2019 71817 Revascularization Acute Total/Subtotal Occlusion Completed 11/16/2018 23510 Punch Biopsy Of Skin Completed Medical Devices Description No Information Available Encounters Type Date Location Provider Dx Diagnosis Office Visit 04/08/2019 [facility] Wilda Alvarez, I21.02 Stemi involving 3:53p Of Handle Turner AT [facility] MANUFACTURING ENGINEERING TECHNOLOGIST left anterior descending coronary artery Z98.61 Coronary angioplasty status Office Visit 04/07/2019 12:25p [facility] Mauro Last I21.02 Stemi involving Of Handle Turner AT [facility] MD Taryn, left anterior FACC, FSCAI descending coronary artery I25.10 Athscl heart disease of [place] coronary artery w/o ang pctrs Z98.61 Coronary angioplasty status I50.9 Heart failure, unspecified E11.9 Type 2 diabetes mellitus without complications D50.9 Iron deficiency anemia, unspecified Office Visit 04/06/2019 12:24p [facility] Mauro Last I21.02 Stemi involving Of Handle Turner AT [facility] MD Taryn, left anterior FACC, FSCAI descending coronary artery I25.10 Athscl heart disease of [place] coronary artery w/o ang pctrs Z98.61 Coronary angioplasty status D50.9 Iron deficiency anemia, unspecified E11.9 Type 2 diabetes mellitus without complications Office Visit 04/05/2019 3:51p [facility] Wilda Alvarez, I21.02 Stemi involving Of Handle Turner AT [facility] MANUFACTURING ENGINEERING TECHNOLOGIST left anterior descending coronary artery E11.9 Type 2 diabetes mellitus without complications E78.5 Hyperlipidemia, unspecified D50.9 Iron deficiency anemia, unspecified I10 Essential (primary) hypertension Office Visit 11/27/2018 11:40a [facility] Geovanna Hayes, L92.0 Granuloma MD swenson Z48.02 Encounter for removal of sutures Office Visit 11/02/2018 11:40a [facility] Geovanna Hayes, R21 Rash and other MD nonspecific skin eruption Assessments Date Code Description Provider 04/16/[address] elevation (Stemi) myocardial Mauro Centeno MD, RAE , infarction involving left anterior FSCAI descending coronary artery 04/16/2019 I50.21 Acute systolic (congestive) heart Mauro Centeno MD, FACC, failure FSCAI 04/16/2019 E11.9 Type 2 diabetes mellitus without Mauro Centeno MD, FACC , complications FSCAI 04/16/2019 D50.9 Iron deficiency anemia, unspecified Mauro Centeno MD, FACC, FSCAI 04/08/[address] elevation (Stemi) myocardial Wilda Alvarez, MANUFACTURING ENGINEERING TECHNOLOGIST infarction involving left anterior descending coronary artery 04/08/2019 Z98.61 Coronary angioplasty status Wilda Antonio, MANUFACTURING ENGINEERING TECHNOLOGIST 04/07/[address] elevation (Stemi) myocardial Mauro Centeno MD, FACC , infarction involving left anterior FSCAI descending coronary artery 04/07/2019 I25.10 Atherosclerotic heart disease of Mauro Centeno MD, FACC, [place] coronary artery without angina FSCAI pectoris 04/07/2019 Z98.61 Coronary angioplasty status Mauro Centeno MD, FACC, FSCAI 04/07/2019 I50.9 Heart failure, unspecified Mauro Centeno MD, FACC, FSCAI 04/07/2019 E11.9 Type 2 diabetes mellitus without Mauro Centeno MD, FACC , complications FSCAI 04/07/2019 D50.9 Iron deficiency anemia, unspecified Mauro Centeno MD, FACC, FSCAI 04/07/[address] elevation (Stemi) myocardial Cipriano Gavino Hawthorne M.D., [facility], infarction involving left anterior FASNC descending coronary artery 04/06/[address] elevation (Stemi) myocardial Mauro Centeno MD, FACDago , infarction involving left anterior FSCAI descending coronary artery 04/06/2019 I25.10 Atherosclerotic heart disease of Mauro Centeno MD, RAE, [place] coronary artery without angina FSCAI pectoris 04/06/2019 Z98.61 Coronary angioplasty status Mauro Centeno MD, FACC, FSCAI 04/06/2019 D50.9 Iron deficiency anemia, unspecified Mauro Centeno MD, RAE, FSCAI 04/06/2019 E11.9 Type 2 diabetes mellitus without Mauro Centeno MD, FACC , complications FSCAI 04/05/[address] elevation (Stemi) myocardial Wilda Alvarez, MANUFACTURING ENGINEERING TECHNOLOGIST infarction involving left anterior descending coronary artery 04/05/2019 E11.9 Type 2 diabetes mellitus without Wilda Alvarez, MANUFACTURING ENGINEERING TECHNOLOGIST complications 04/05/2019 E78.5 Hyperlipidemia, unspecified Wilda Thuman, MANUFACTURING ENGINEERING TECHNOLOGIST 04/05/2019 D50.9 Iron deficiency anemia, unspecified Wilda Thtonya, MANUFACTURING ENGINEERING TECHNOLOGIST 04/05/[address] elevation (Stemi) myocardial Mauro Centeno MD, FACDago , infarction involving left anterior FSCAI descending coronary artery 04/05/2019 I10 Essential (primary) hypertension Wilda Alvarez, MANUFACTURING ENGINEERING TECHNOLOGIST 04/05/2019 I25.10 Atherosclerotic heart disease of Mauro Centeno MD, FACC, [place] coronary artery without angina FSCAI pectoris 11/27/2018 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 at [facility] AT [facility]05/29/2019 11:20 am - Larry Chua MD at [facility]04/16/2019 - Mauro Centeno MD, [facility], YPMHIZ37.02 St elevation (Stemi) myocardial infarction involving left anterior descending coronary fpogkhG07.21 Acute systolic (congestive) heart iqhaflxD57.9 Type 2 diabetes mellitus without gfyqfcuaccatxA73.9 Iron deficiency anemia, unspecified Functional Status Description No Information Available Mental Status Description No Information Available Referrals Description No Information Available
--- OUTSIDE RECORDS SUMMARY | 2019-05-19 09:53 | XMS REPORT | Continuity of Care Document ---
:1955 External Reference #:[id number] Author Name Aury Galeano MD (transmitted by agent of provider Margaux Lopez ) Address [address] [place] [address] Care Team Providers Name Role Phone Juan Pablo Mendez M.D. - Family Care Team Information [facility] [phone] Medicine Problems Description No Active Problems Social History Type Date Description Comments Sex Unknown Tobacco Use Start: Unknown Patient has never smoked Smoking Status Reviewed: 04/15/19 Patient has never smoked Allergies, Adverse Reactions, Alerts Active Allergies Reaction Severity Comments Date Penicillin 01/15/2007 Levaquin 01/22/2009 Medications Active Medications SIG Qnty Indications Ordering Provider Date Metformin HCL Unknown 500mg Vesicare 10mg Unknown Levothyroxine Sodium Unknown 50mg Omeprazole 40mg Unknown Aspir-Low Unknown Immunizations Description No Information Available Vital Signs Date Vital Result Comment 04/15/2019 1:09pm BP Systolic 130 mmHg BP Diastolic 70 mmHg Height 65 inches 5'5" Weight 235.00 lb BMI (Body Mass Index) 39.1 kg/m2 Last Menstrual Period 1831165 2 Parity 2 03/20/2017 2:44pm BP Systolic 146 mmHg Repeat BP 126/84 BP Diastolic 84 mmHg Repeat BP 126/84 Height 65 inches 5'5" Weight 246.00 lb BMI (Body Mass Index) 40.9 kg/m2 Last Menstrual Period 3446622 2 Parity 2 Results Description No Information Available Procedures Date Code Description Status 03/01/2019 [id number] Mammogram Completed 06/19/2017 [id number] Colonoscopy Completed Medical Devices Description No Information Available Encounters Description No Information Available Assessments Description No Information Available Plan of Treatment No Information Available Functional Status Description No Information Available Mental Status Description No Information Available Referrals Description No Information Available
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
[2019-05-19 10:22] LABS: ABS Eosinophils 0.1 10^3/ul (0-0.6); ABS Lymphocytes 1.3 10^3/ul (1.0-4.8); ABS Monocytes 0.4 10^3/ul (0-0.8); ABS Neutrophils 3.6 10^3/ul (1.5-7.7); Eosinophil % 1.9 %; Hematocrit 36 % (35-47); Hemoglobin 11.9 g/dL (12.0-16.0); Lymphocyte % 24.4 %; Mean Corpuscular HGB Conc 33 g/dL (31-36); Mean Corpuscular Hemoglobin 26 pg (27-31); Mean Corpuscular Volume 78 fL (80-97); Mean Platelet Volume 8.5 fL (7.4-10.4); Platelet Count 242 10^3/uL (150-450); Red Blood Count 4.57 10^6 /uL (3.70-4.87); Red Cell Distribution Width 19 % (10-15); White Blood Count 5.5 10^3/uL (3.5-10.8)
[2019-05-19 10:30] LABS: Activated Partial Thrombo Time 39.4 seconds (26.0-38.0); INR 1.03 (0.82-1.09)
[2019-05-19 10:39] LABS: Albumin 4.1 g/dL (3.2-5.2); Albumin/Globulin Ratio 1.4 (1-3); BUN/Creatinine Ratio 12.4 (8-20); Calcium 9.2 mg/dL (8.6-10.3); EGFR African American 63.8 (>60); EGFR Non-African American 52.8 (>60); Globulin 2.9 g/dL (2-4); Potassium 4.3 mmol/L (3.5-5.0); Total Bilirubin 0.5 mg/dL (0.2-1.0)
[2019-05-19 10:44] LABS: CKMB ng/mL 1.3 ng/mL (0.6-6.3)
[2019-05-19 14:05] VITALS: BP 139/81
== END 2019-05-19 14:03 | disposition home or self-care (01) ==
LOC: ED 09:40
DX: R07.89 Other chest pain (principal); M79.602 Pain in left arm; R42 Dizziness and giddiness; E11.9 Type 2 diabetes mellitus without complications; Z95.5 Presence of coronary angioplasty implant and graft; Z79.02 Long term (current) use of antithrombotics/antiplatelets; Z79.82 Long term (current) use of aspirin; Z88.1 Allergy status to other antibiotic agents; Z88.0 Allergy status to penicillin; Z91.048 Other nonmedicinal substance allergy status
CPT/HCPCS: 36415; 71045; 80053; 82550; 82553; 83880; 84484; 85025; 85610; 85730; 93005; 99283